=== PATIENT | female | born 1940 | race Caucasian/White ===

== ENCOUNTER 2020-08-03 18:50 | Inpatient (IN) | payer MEDICARE ==
[~2020-08-03] VITALS: Ht 173 cm; Wt 102.0 kg
[2020-08-03 20:10] LABS: BASOPHIL 0.8 % (0-2); EOSINOPHIL 0.6 % (0-7); HCT 40.2 % (37.0-47.0); LYMPHOCYTE 12.3 % (15-48); MCHC 32.3 g/dL (32.0-36.0); MCV 95.7 fL (78.0-100.0); MONOCYTE 4.4 % (0-12); MPV 9.6 fL (6.0-9.5); NRBC 0; PLT 293 K/uL (150-400); RDW 13.6 % (11.5-14.0); WBC 7.7 K/uL (4.0-10.5)
[2020-08-03 20:26] LABS: BILIRUBIN - TOTAL 0.6 mg/dL (0.2-1.0); BUN/CREAT RATIO (CALC) 21.2 RATIO; CREATININE 0.8 mg/dL (0.51-0.95); GLOBULIN (CALCULATION) 3.4 g/dL; POTASSIUM 4.1 mmol/L (3.5-5.1); TOTAL PROTEIN 7.4 g/dL (6.4-8.2)
[2020-08-03 21:05] LABS: INR 1.05 (0.9-1.2); PTT 36.3 SECONDS (22.2-34.7)
[2020-08-03 21:27] LABS: BILIRUBIN NEGATIVE (NEGATIVE); BLOOD NEGATIVE Ery/uL (NEGATIVE); CLARITY CLEAR (CLEAR); COLOR YELLOW (YELLOW); GLUCOSE (U) NORMAL (NORMAL); LEUKOCYTES NEGATIVE Leu/uL (NEGATIVE); NITRITE NEGATIVE (NEGATIVE); PROTEIN NEGATIVE (NEGATIVE); SPECIFIC GRAVITY 1.025 (1.001-1.030); UROBILINOGEN 0.2 mg/dL (0.2-1.0)
[2020-08-03] MEDS ORDERED: SIMVASTATIN20 MG PO (23:33)
[2020-08-03] MEDS ORDERED: DOXYCYCLINE MO100 MG PO (23:36)
[2020-08-03] MEDS ORDERED: LORATADINE10 MG PO (23:37)
[2020-08-03] MEDS ORDERED: ADULT ASPIRIN R81 MG PO (23:39)
[2020-08-05 06:06] LABS: BASOPHIL 0.4 % (0-2); EOSINOPHIL 0.8 % (0-7); HCT 36.6 % (37.0-47.0); HGB 11.7 g/dl (12.5-16.0); LYMPHOCYTE 8.9 % (15-48); MCH 30.4 pg (25.0-31.0); MCV 95.1 fL (78.0-100.0); MONOCYTE 6.9 % (0-12); NEUTROPHIL 82.5 % (41-80); NRBC 0; PLT 248 K/uL (150-400); RBC 3.85 M/uL (4.20-5.40); RDW 13.3 % (11.5-14.0); WBC 9.6 K/uL (4.0-10.5)
[2020-08-05 06:21] LABS: BILIRUBIN - TOTAL 0.8 mg/dL (0.2-1.0); BUN/CREAT RATIO (CALC) 11.3 RATIO; CREATININE 0.71 mg/dL (0.51-0.95); GLOBULIN (CALCULATION) 3.4 g/dL; POTASSIUM 3.8 mmol/L (3.5-5.1); TOTAL PROTEIN 6.4 g/dL (6.4-8.2)
[2020-08-06 06:34] LABS: BASOPHIL 0.2 % (0-2); EOSINOPHIL 0.1 % (0-7); HGB 11.4 g/dl (12.5-16.0); LYMPHOCYTE 7.1 % (15-48); MCH 30.8 pg (25.0-31.0); MCHC 32.6 g/dL (32.0-36.0); MCV 94.6 fL (78.0-100.0); MONOCYTE 6.5 % (0-12); MPV 10.1 fL (6.0-9.5); NEUTROPHIL 85.6 % (41-80); NRBC 0; PLT 241 K/uL (150-400); RDW 13.1 % (11.5-14.0)
[2020-08-06 06:57] LABS: BUN/CREAT RATIO (CALC) 11.3 RATIO; CREATININE 0.71 mg/dL (0.51-0.95); POTASSIUM 4.2 mmol/L (3.5-5.1)
[2020-08-07 08:38] LABS: BASOPHIL 0.6 % (0-2); EOSINOPHIL 4.5 % (0-7); HCT 33.7 % (37.0-47.0); HGB 10.9 g/dl (12.5-16.0); LYMPHOCYTE 7.6 % (15-48); MCH 31.1 pg (25.0-31.0); MCHC 32.3 g/dL (32.0-36.0); MONOCYTE 6.7 % (0-12); MPV 9.7 fL (6.0-9.5); NEUTROPHIL 80.1 % (41-80); NRBC 0; PLT 264 K/uL (150-400); RBC 3.51 M/uL (4.20-5.40); RDW 13.3 % (11.5-14.0); WBC 11.6 K/uL (4.0-10.5)
[2020-08-07 08:52] LABS: BUN/CREAT RATIO (CALC) 21.3 RATIO; CREATININE 0.75 mg/dL (0.51-0.95); POTASSIUM 4.1 mmol/L (3.5-5.1)
--- NOTE | 2020-08-07 09:46 | NUR ---
PT HAS BEEN ACCEPTED AT THE [facility]. PT. SPOUSE SIGNED CHOICE FORM PT. ARM IS BROKEN. REPORT NUMBER IS [phone] EXT [phone] REPORT FAX IS [phone].
[2020-08-07] MEDS ORDERED: LAXATIVE SUPPOS10 MG PR (10:38)
[2020-08-07] MEDS ORDERED: FEOSOL325 MG PO (10:38)
[2020-08-07] MEDS ORDERED: MILK OF MA400 MG/5 M PO (10:38)
[2020-08-07] MEDS ORDERED: NORCO 5-325 TA1 EACH PO (10:38)
[2020-08-07] MEDS ORDERED: STIMULANT LAXA1 EACH PO (10:38)
[2020-08-07] MEDS ORDERED: XARELTO10 MG PO (10:38)
[2020-08-07] MEDS ORDERED: DULCOLAX5 MG PO (10:38)
[2020-08-07] MEDS ORDERED: ZOFRAN4 M1 PO (10:39)
--- NOTE | 2020-08-07 14:54 | NUR ---
IV REMOVED AND TELY REMOVED AND REPORT CALLED TO ZAIRE BENNETT AT [phone]. EMS WAS CALLED PT GOING INTO ROOM [id number]
== END 2020-08-07 17:00 | DRG 481 ==
LOC: FER 18:50 → FMS 21:18
PROVIDERS: Emergency Medicine Emergency Medical Services; Legal Medicine; Nurse Practitioner; Nurse Practitioner Adult Health; ADMIT Internal Medicine
PROC: 0QS704Z Reposition Left Upper Femur with Internal Fixation Device, Open Approach (ICD-10-PCS; principal; 2020-08-05 13:15)
DX: S72.145A Nondisplaced intertrochanteric fracture of left femur, initial encounter for closed fracture (principal); S42.202A Unspecified fracture of upper end of left humerus, initial encounter for closed fracture; A93.8 Other specified arthropod-borne viral fevers; I10 Essential (primary) hypertension; E78.5 Hyperlipidemia, unspecified; Z20.822 Contact with and (suspected) exposure to COVID-19; M54.30 Sciatica, unspecified side; G89.29 Other chronic pain; R01.1 Cardiac murmur, unspecified; I35.8 Other nonrheumatic aortic valve disorders; R73.03 Prediabetes; W01.0XXA Fall on same level from slipping, tripping and stumbling without subsequent striking against object, initial encounter; Z79.82 Long term (current) use of aspirin; Z79.899 Other long term (current) drug therapy; Z88.5 Allergy status to narcotic agent
CPT/HCPCS: 36415; 70450; 71045; 72170; 73030; 73200; 73501; 73552; 73700; 76000; 80048; 80053; 81003; 85025; 85610; 85730; 86850; 86900; 86901; 87088; 93005; 94010; 94667; 94668; 94760; 94762; 96374; 96375; 97163; 97167; 97530-GP; 97535; C1713; J0697; J0780; J1100; J1170; J1885; J2270; J2405; J2704; J2795; J3010; J7030; J7040; J7120; J7121; U0002